=== PATIENT | male | born 1995 | race Caucasian/White ===

== ENCOUNTER 2024-04-25 03:34 | Emergency (ER) | payer MEDICAID, OTHER ==
[~2024-04-25] VITALS: Ht 170.2 cm; Wt 79.0 kg
[2024-04-25 03:38] VITALS: TEMP 98.6
[2024-04-25 03:52] VITALS: BP 126/67; PULSE 100; RESP 16; O2SAT 99
== END 2024-04-25 06:34 | disposition home or self-care (01) ==
LOC: ER 03:34
DX: F10.129 Alcohol abuse with intoxication, unspecified (principal); Y90.9 Presence of alcohol in blood, level not specified
CPT/HCPCS: 99284